=== PATIENT | female | born 1985 | race Caucasian/White ===

== ENCOUNTER 2018-08-13 00:05 | Inpatient (IN) | payer BC, MEDICAID, OTHER ==
[2018-08-13] MEDS ORDERED: Promethazine HCl 25 MG/ML VIAL IM PRN (00:54)
[2018-08-13] MEDS ORDERED: Acetaminophen 500 MG TAB PO PRN (00:54)
[2018-08-13] MEDS ORDERED: Ondansetron HCl/PF 4 MG/2 ML Vial IVP PRN ×2 (00:54→12:56)
[2018-08-13] MEDS ORDERED: Misoprostol 100 MCG TAB VAG PRN (00:59)
[2018-08-13] MEDS ORDERED: NS w/ Oxytocin 10 units 500 ML IV SCH (01:00)
[2018-08-13] MEDS ORDERED: Penicillin G Potassium 5 MILL.UNITS in Sodium Chloride 0.9% 100 ML IVPB SCH (01:00)
[2018-08-13] MEDS ORDERED: HYDROcodone/Acetaminophen 5/325 mg Tablet PO PRN ×3 (01:00→12:56)
[2018-08-13] MEDS ORDERED: Ibuprofen 800 MG TAB PO PRN (01:00)
[2018-08-13] MEDS ORDERED: Carboprost 250 MCG/ML AMP IM PRN (01:00)
[2018-08-13] MEDS ORDERED: Misoprostol 200 MCG TAB RC PRN (01:00)
[2018-08-13] MEDS ORDERED: Lidocaine 1% (PF) 30 ML VIAL SC PRN (01:00)
[2018-08-13] MEDS ORDERED: Misoprostol 100 MCG TAB VAG SCH (01:00)
[2018-08-13] MEDS ORDERED: Methylergonovine 0.2 MG/ML VIAL IM PRN (01:00)
[2018-08-13 01:03] VITALS: BMI 29.7
[2018-08-13] MEDS: Lactated Ringer's 1,000 ML IV SCH ×2 (01:20→11:09)
[2018-08-13 01:46] LABS: Hemoglobin 12.7 g/dL (12.0-16.0); Mean Corpuscular HGB CONC 34.4 g/dL (32.0-36.0); Mean Corpuscular Hemoglobin 31.2 pg (27.0-31.0); Mean Corpuscular Volume 90.7 fL (78.0-98.0); Mean Platelet Volume 8.2 fL (7.4-10.4); Platelet Count 178 thou/uL (130-400); RBC Distribution Width 11.8 % (11.5-14.5); Red Blood Cell (RBC) Count 4.09 mill/uL (4.20-5.40)
[2018-08-13] MEDS: NS w/ Oxytocin 10 units 500 ML IV SCH ×2 (01:48→05:59)
[2018-08-13 02:25] LABS: HBSAg Index 0.23 S/CO (0-0.99); Hep B Surf Ag Non-Reactive S/CO (NonReactive)
[2018-08-13] MEDS: Penicillin G 2.5 MILL.units 50 ML IVPB SCH ×2 (05:35→11:09)
[2018-08-13] MEDS: Butorphanol Tartrate 1 MG/ML VIAL SLOW IVP PRN ×2 (08:07→09:07)
[2018-08-13] MEDS: NS / Oxytocin 40 units/1000ml 1,000 ML IV SCH ×2 (09:39→10:43)
[2018-08-13] MEDS ORDERED: Milk Of Magnesia 30 ML UDCUP PO PRN (12:56)
[2018-08-13] MEDS ORDERED: Bisacodyl 10 MG SUPP PR PRN (12:56)
[2018-08-13] MEDS ORDERED: Benzocaine/Menthol 20-0.5% 60 ML CAN TOP PRN (12:56)
[2018-08-13] MEDS ORDERED: Preparation H Ointment 28 GM TUBE PR PRN (12:56)
[2018-08-13] MEDS ORDERED: NS / Oxytocin 40 units/1000ml 1,000 ML IV SCH (12:56)
[2018-08-13] MEDS ORDERED: Lanolin Ointment 7 GM TUBE TOP PRN (12:56)
[2018-08-13] MEDS: Ibuprofen 800 MG TAB PO SCH ×2 (13:54→21:47)
[2018-08-13] MEDS: Ferrous Sulfate 325 MG TAB PO SCH (13:55)
[2018-08-13] MEDS: HYDROcodone/Acetaminophen 5/325 mg Tablet PO PRN (16:46)
[2018-08-13] MEDS: Docusate Calcium (SURFAK) 240 MG CAP PO SCH (21:47)
[2018-08-14 05:51] LABS: Hemoglobin 12.3 g/dL (12.0-16.0); Mean Corpuscular HGB CONC 33.5 g/dL (32.0-36.0); Mean Corpuscular Hemoglobin 30.9 pg (27.0-31.0); Mean Corpuscular Volume 92.2 fL (78.0-98.0); Mean Platelet Volume 8.3 fL (7.4-10.4); Platelet Count 195 thou/uL (130-400); RBC Distribution Width 11.9 % (11.5-14.5); Red Blood Cell (RBC) Count 3.98 mill/uL (4.20-5.40); White Blood Cell (WBC) Count 11.2 thou/uL (4.8-10.8)
[2018-08-14] MEDS: Ibuprofen 800 MG TAB PO SCH ×3 (06:10→21:25)
[2018-08-14] MEDS: Docusate Calcium (SURFAK) 240 MG CAP PO SCH ×2 (09:10→21:26)
[2018-08-14] MEDS: Ferrous Sulfate 325 MG TAB PO SCH ×2 (09:10→15:23)
[2018-08-14] MEDS: Prenatal Vitamin 1 TAB PO SCH (09:10)
[2018-08-14] MEDS: HYDROcodone/Acetaminophen 5/325 mg Tablet PO PRN ×2 (09:11→21:29)
[2018-08-15] MEDS: Ibuprofen 800 MG TAB PO SCH (05:55)
[2018-08-15] MEDS: Ferrous Sulfate 325 MG TAB PO SCH (07:40)
[2018-08-15] MEDS: Prenatal Vitamin 1 TAB PO SCH (08:57)
[2018-08-15] MEDS: Docusate Calcium (SURFAK) 240 MG CAP PO SCH (08:57)
[2018-08-15] MEDS: HYDROcodone/Acetaminophen 5/325 mg Tablet PO PRN (08:58)
[2018-08-15 09:14] VITALS: BP 99/64; TEMP 97.6
== END 2018-08-15 11:27 | disposition home or self-care (01) | DRG 775 ==
LOC: L&D 00:26 → 3SW 13:24
PROVIDERS: ADMIT Family Medicine; ATTEND Family Medicine
PROC: 10E0XZZ Delivery of Products of Conception, External Approach (ICD-10-PCS; principal; 2018-08-13)
PROC: 0KQM0ZZ Repair Perineum Muscle, Open Approach (ICD-10-PCS; 2018-08-13)
PROC: 10907ZC Drainage of Amniotic Fluid, Therapeutic from Products of Conception, Via Natural or Artificial Opening (ICD-10-PCS; 2018-08-13)
DX: O99.824 Streptococcus B carrier state complicating childbirth (principal); Z37.0 Single live birth; O70.1 Second degree perineal laceration during delivery; Z3A.39 39 weeks gestation of pregnancy
CPT/HCPCS: 36415; 85027; 86850; 86900; 86901; 87340; J0595; J2001; J2540; J7050

== ENCOUNTER 2022-06-19 15:03 | Emergency (ER) | payer MEDICAID, OTHER ==
[2022-06-19 15:33] LABS: #Lymphocytes 0.9 thou/uL (1.20-3.40); #Monocytes 0.3 thou/uL (0.11-0.59); #Neutrophils 7.3 thou/uL (1.40-6.50); %Basophils 0.2 % (0.0-1.0); %Eosinophils 0.2 % (0.0-10.0); %Lymphocytes 10.2 % (21.0-51.0); %Monocytes 3.6 % (0.0-10.0); %Neutrophils 85.8 % (42.0-75.0); Hemoglobin 10.9 g/dL (12.0-16.0); Mean Corpuscular HGB CONC 35.4 g/dL (32.0-36.0); Mean Corpuscular Hemoglobin 32.2 pg (27.0-31.0); Mean Corpuscular Volume 91.1 fL (78.0-98.0); Mean Platelet Volume 7.9 fL (7.4-10.4); Platelet Count 175 thou/uL (130-400); RBC Distribution Width 11.7 % (11.5-14.5); Red Blood Cell (RBC) Count 3.39 mill/uL (4.20-5.40); White Blood Cell (WBC) Count 8.5 thou/uL (4.8-10.8)
[2022-06-19 15:42] LABS: BHCG - Serum POSITIVE (NEGATIVE); Pregs Control Background? CLEAR/WHITE (CLR/WHITE); Pregs Control Bar Appear? YES (CONTROL BAR)
[2022-06-19] MEDS ORDERED: Oxytocin 10 UNITS/ML VIAL IM SCH (18:30)
== END 2022-06-19 19:15 | disposition short-term general hospital (02) ==
LOC: ERS 15:03
DX: O20.0 Threatened abortion (principal); O99.891 Other specified diseases and conditions complicating pregnancy; R55 Syncope and collapse; Z3A.01 Less than 8 weeks gestation of pregnancy
CPT/HCPCS: 76856; 84702; 84703; 85025; 86900; 86901; 93005; 96372; J2590